=== PATIENT | female | born 1955 | race Caucasian/White ===

== ENCOUNTER 2023-01-30 06:02 | Day surgery (SDC) | payer BC, SELFPAY ==
--- OUTSIDE RECORDS SUMMARY | 2023-01-30 06:07 | XMS_ITS | Continuity of Care Document ---
Author Name Unknown Organization [facility] Address [address] [place] [address] Phone Care Team Providers Care Factory Maintenance Technician Name Role Phone Lorraine SIDDIQUI, Leonardo Unavailable Unavailable Allergies, Adverse Reactions, Alerts Substance Reaction Status Criticality Iodinated Contrast Media Active No Information spironolactone Active No Informatio n gabapentin Active No Information hydrochlorothiazide Active No Infor mation Sulfa (Sulfonamide Antibiotics) Active No Information Medications Medication Instructions Dosage Effective Dates (start - stop) Status Comments lisinopril 40 mg tablet take 1 tablet by oral route every day 40 MG - Active Lipitor 20 mg tablet take 1 tablet by oral route every day 20 MG - Active chlorthalidone 25 mg tablet take 1/2 tablet by oral route every day - Active Pradaxa 150 mg capsule take 1 capsule by oral route 2 times every day 150 MG - Active sildenafil (antihypertensive) 20 mg tablet take 1 Tablet by oral route 3 times every day 20 MG - Active aspirin 81 mg tablet,delayed release take 1 tablet by oral route every day 81 MG - Active diltiazem 120 mg tablet take 1 tablet by oral route 3 times every day 120 MG - Active Co Q-10 100 mg capsule take 1 Capsule by Oral route every day 1 Capsule - Active Vitamin D3 5,000 unit tablet take 1 by Oral route every day 1 - Active VITAMIN K2 (unknown strength) One daily Not Available - Active multivitamin tablet take 1 tablet by oral route every day with food - Active METAMUCIL (unknown strength) 1 teaspoon daily Not Available - Active Procedures Procedure Date Office/Outpatient Visit, [facility] Routine Venipuncture Antinuclear Antibodies Dna Antibody, Single Strand Nov-13-2019 Dna Antibody, [place] Nuclear Antigen Antibodies Advance Directives Directive Yes / No Effective Date File Name No Information Encounters Encounter Description Practice Location Reason(s) For Visit Diagnoses Date Provider Providers Copied on Encounter [facility], [address], [place], [address], [place] tel:[phone] [facility] , No Information 9 Lorraine Patterson. [facility] [address], [place], [address], [place]. tel:[phone] Office/Outpa tient Visit, New [facility], [address], [place], [address], [place] tel:[phone] [facility] , christopher (chief complaint) Pain in unspecified toe(s) 9 Lorraine Patterson. [facility] [address], [place], [address], [place]. tel:[phone] Referring Provider: Leonardo Pablo, [facility] [address], [place], [address]. tel:[phone] [facility], [address], [place], [address], [place] tel:[phone] [facility] , No Information 9 Lorraine Patterson. [facility] [address], [place], [address], [place]. tel:[phone] Referring Provider: Leonarod Pablo, [facility] [address], [place], [address]. tel:[phone] Family History Family Member Type Diagnosis Age At Onset Paternal aunt Problem (finding) rheumatoid arthritis Payers Payer name Insurance type Covered green party ID Authoriza ticortez(s) [facility] [id number] Social History Type Description Quantity Date Captured Comments Sex Female Smoking Status No Information Chief Complaint And Reason For Visit No Information Reason For Referral Reason For Referral No Information History Of Present Illness Encounter Date Complaint History Of Prese nt Illness pernio Functional Status Date Functional Assessmen t No Information Instructions Date Instruction Additional Infor mation No Information Assessments Type Assessment Date No Information Patient Care Teams Name Effective Dates (start - stop) Status Members No Information
[2023-01-30 06:32] VITALS: BMI 30.2
[2023-01-30 06:47] VITALS: BP 135/74; PULSE 68; RESP 16; TEMP 36.8; O2SAT 98
[2023-01-30] MEDS: LACTATED RINGERS 1000 ML 1,000 ML 100 ML IV (07:20)
[2023-01-30] MEDS: SODIUM CHLORIDE 0.9 % (FLUSH) 10 ML SYRINGE IVF (07:20)
--- NOTE | 2023-01-30 07:46 | CRLHL7_ITS ---
For Patients: As a result of the Century Cures Act, medical imaging exams and procedure reports are released immediately into your electronic medical record. You may view this report before your referring provider. If you have questions, please contact your health care provider. HISTORY: Intraoperative. TECHNIQUE: Fluoroscopy was provided for the surgical service intraoperatively. Please see their report for full procedural details. FINDINGS: Spot films demonstrate 1st MTP joint plate and screw fusion hardware. Resection of the heads of the 2nd through 5th metatarsal bones. There are pins associated with the 2nd, 3rd and 4th toes on one of the views. Dictated by Jasen Herr MD @ 02/02/2023 7:17:14 PM (Electronically Signed)
[2023-01-30] MEDS: BUPIVACAINE 0.5% 30 ML INJECTION (07:50)
[2023-01-30 11:41] VITALS: BP 142/81; PULSE 68; RESP 16; TEMP 36.3; O2SAT 98
--- NOTE | 2023-01-30 11:44 | W.ANESCHARGE ---
Anesthesia Charges Start Date/Time Anesthesia Start Date: 01/30/23 Anesthesia Start Time: 07:42 Stop Date/Time Anesthesia Stop Date: 01/30/23 Anesthesia Stop Time: 11:43
[2023-01-30 12:00] VITALS: BP 154/80; PULSE 62; RESP 16; O2SAT 99
[2023-01-30] MEDS: OxyCODONE/APAP 5-325 TABLET PO (12:06)
[2023-01-30 12:15] VITALS: BP 152/77; PULSE 68; RESP 16; O2SAT 99
[2023-01-30 12:45] VITALS: BP 137/77; PULSE 59; RESP 16; O2SAT 99
--- NOTE | 2023-02-01 19:57 | P.PCN_ITS ---
Procedure Note Date Seen: 01/30/23 Date of procedure: 01/30/23 Will [facility] bill your pro fee for this procedure?: No Pre-op diagnosis: Nonhealing ulcer right foot, Bunion right, hammertoes 2-5 right Post-op diagnosis: same Procedure: 1. 1st MPJ fusion right 2. Metatarsal head resection 2, 3, 4, and 5 right 3. Hammertoe repair digit 2 right 4. Hammertoe repair digit 3 right 5. Hammertoe repair digit 4 right 6. Hammertoe repair digit 5 right Procedure Description: Hemostasis: ankle tourniquet 250mmHg. Materials: Arthrex 1st MPJ fusion plate, 3.0mm cortical locking screws x4 and nonlocking screw x1, 3.0mm cannulated headless screw x1, 0.062 k-wire x3. Complication: none apparent. Inidcation for surgery: Dilma has had a longstanding ulceration that has caused numerous infections. She is in need for surgical correction of her foot deformities to heal the ulceration and prevent future issues. I reviewed the procedure, recovery, expectations and possible complications with her. These include but are not limites to: poor wound healing, infection, hardware failure or irritation, possible need for future surgery, nonunion, delayed union, malunion, DVT, PE and possible . All questions answered and written consent obtained. Site marked. Procedure in detail: Patient was brought into the operating room and placed on the operating room table in supine position. Standard timeout protocol followed. MAC anesthesia provided and local anesthetic, 30 mL of 0.5% marcaine plain, injected into the right foot. Plantar ulcer debrided with scalpel. She was prepped and draped in sterile fashion. Tegaderm placed over the plantar ulcer. Right foot exsanguinated and tourniquet inflated to 250mmHg. Dorsal medial incision made over the 1st MPJ right foot. Incision deepened through skin and subcutaneous tissue. Blunt dissection taken down to the 1st MPJ capsule. Linear capsule incision made and 1st metatarsal head and proximal phal anx exposed. Guide pin placed into the 1st metatarsal head and 20mm reamer used to remove the cartilage and subchondral bone removed. Guide pin removed and placed in the proximal phalanx base. The corresponding 20mm reamer used to remove the cartilage and subchondral bone. Area irrigated with saline. The opposing fusion surfaces fenestrated with k-wire. Weight bearing simulated with metal lid and great toe positioned optimally and temporarily fixated with k- wire. Position optimal and confirmed with c-arm. Guidepin placed from distal medial to proximal lateral across fusion. 3.0mm headless screw placed with standard technique. excellent compression across fusion. Dorsal 6 hole plate applied with three 3.0mm locking screws placed distal to fusion and one 3.0mm locking screw and one 3.0mm nonlocking screw placed proximal to the fusion. Medial fusion site remodeled with resurfacing bur. C-arm confirmed excellent position and length of screws. Irrigation with sterile saline. Capsule closed with 3-0 Vicryl suture. Subcutaneous tissue closed with 4-0 Monocryl suture. Skin closed with 4-0 Prolene. Linear incision made between the 2nd and 3rd metatarsal heads and distal shafts. Incision deepened bluntly down to the 2nd toe long extensor tendons. The EDB tendon slip transected and Z lengthening made in the EDL tendon slip. the periosteum of the 2nd metatarsal and the MPJ capsule exposed. 2nd proximal phalanx base completely dorsally dislocated. Linear incision made and McGlammery elevator placed into the joint and the medial, lateral and plantar tissue released from the 2nd metatarsal head. Sagittal saw was used to then transect the metatarsal neck and remove the metatarsal head. Preserving the neurovascular structures between 2nd and 3rd metatarsals a new blunt dissection plane made down to the extensor tendons of the 3rd toe. The EDB tendon slip transected and Z lengthening made in the EDL tendon slip. the periosteum of the 3rd metatarsal and the MPJ capsule exposed. 3rd proximal phalanx base completely dorsally dislocated. Linear incision made and McGlammery elevator placed into the joint and the medial, lateral and plantar tissue released from the 3rd metatarsal head. Sagittal saw was used to then transect the metatarsal neck and remove the metatarsal head. Linear incision made between the 4th and 5th metatarsal heads and distal shafts. Incision deepened bluntly down to the 4th toe long extensor tendons. The EDB tendon slip transected and Z lengthening made in the EDL tendon slip. the periosteum of the 4th metatarsal and the MPJ capsule exposed. Linear incision made and McGlammery elevator placed into the joint and the medial, lateral and plantar tissue released from the 4th metatarsal head. Sagittal saw was used to then transect the metatarsal neck and remove the metatarsal head. Preserving the neurovascular structures between 4th and 5th metatarsals a new blunt dissection plane made down to the extensor tendons of the 5th toe. Z lengthening made in the EDL tendon slip. the periosteum of the 5th metatarsal and the MPJ capsule exposed. Linear incision made and McGlammery elevator placed into the joint and the medial, lateral and plantar tissue released from the 3rd 5th metatarsal head. Sagittal saw was used to then transect the metatarsal neck and remove the metatarsal head. C-arm confimed the appropriate level of cuts. Both areas irrigated with sterile saline. Tourniquet released and all bleeding vessels cauterized. Tourniquet was down for 30 minutes then reinflated. Linear incision made over the PIPJ of the 2nd toe. Incision taken down to the extensor tendon and joint capsule. Neurovascular structures carefully protected medial and lateral. Transverse incision made through the tendons and capsule at the PIPJ. Medial and lateral collateral ligaments released. Oscillating saw used to resect the proximal phalanx head and the middle phalanx base. 0.062 k- wire place in base of middle phalanx and driven out the tip of the toe. Fusion held tightly together and retrograde drilling of k-wire into proximal phalanx. The k-wire was observed exiting the phalanx base and was placed on the metatarsal shaft with toe in perfect position and advanced into the metatarsal purchasing medial cortex. I could not run the k-wire down the shaft as this would hold toe to medial. Irrigation with saline. c-arm confirmed position. 4-0 Vicryl used to repair the extensor tendon. Skin closed with 4-0 Prolene. K-wire bent, cut and capped. Linear incision made over the PIPJ of the 3rd toe. Incision taken down to the extensor tendon and joint capsule. Neurovascular structures carefully protected medial and lateral. Transverse incision made through the tendons and capsule at the PIPJ. Medial and lateral collateral ligaments released. Oscillating saw used to resect the proximal phalanx head and the middle phalanx base. 0.062 k- wire place in base of middle phalanx and driven out the tip of the toe. Fusion held tightly together and retrograde drilling of k-wire into proximal phalanx. The k-wire was observed exiting the phalanx base and was placed on the metatarsal shaft with toe in perfect position and advanced into the metatarsal purchasing medial cortex. I could not run the k-wire down the shaft as this would hold toe to medial. Irrigation with saline. c-arm confirmed position. 4-0 Vicryl used to repair the extensor tendon. Skin closed with 4-0 Prolene. K-wire bent, cut and capped. Linear incision made over the PIPJ of the 4th toe. Incision taken down to the extensor tendon and joint capsule. Neurovascular structures carefully protected medial and lateral. Transverse incision made through the tendons and capsule at the PIPJ. Medial and lateral collateral ligaments released. Oscillating saw used to resect the proximal phalanx head and the middle phalanx base. 0.062 k- wire place in base of middle phalanx and driven out the tip of the toe. Fusion held tightly together and retrograde drilling of k-wire into proximal phalanx. The k-wire was observed exiting the phalanx base and was placed on the metatarsal shaft with toe in perfect position and advanced into the metatarsal purchasing medial cortex. I could not run the k-wire down the shaft as this would hold toe to medial. Irrigation with saline. c-arm confirmed position. 4-0 Vicryl used to repair the extensor tendon. Skin closed with 4-0 Prolene. K-wire bent, cut and capped. Linear incision made over the PIPJ of the 5th toe. Incision taken down to the extensor tendon and joint capsule. Neurovascular structures carefully protected medial and lateral. Transverse incision made through the tendons and capsule at the PIPJ. Medial and lateral collateral ligaments released. Oscillating saw used to resect the proximal phalanx head. Irrigation with saline. c-arm confirmed position. 4-0 Vicryl used to repair the extensor tendon. Skin closed with 4-0 Prolene. K-wire bent, cut and capped. Incisions over the metatarsals closed with 4-0 Monocryl and 4-0 Prolene. Xeroform placed over incisions and plantar ulcer. Tourniquet released and normal CFT returned to all digits. Sterile dressing applied. CAM boot placed. She was transported from OR to PACU with VSS and vascular status intact. She will be discharged per anesthesia and same day surgery protocol. WB to the heel in CAM boot for transfers otherwise NWB. Crutches or walker. Both written and verbal post operative instructions given. Oxycodone for pain sent to pharmacy. She can also take tylenol. She will start her eliquis tomorrow. Follow up next week. Keep dressing clean and dry. Resume levaquin tomorrow. Anesthesia: MAC and local Surgeon: Francesco Balbuena DPM FACFAS Estimated blood loss (mL): 20 Pathology: none sent Condition: stable Disposition: same day
== END 2023-01-30 13:15 | disposition home or self-care (01) ==
PROVIDERS: Visit Provider Podiatrist
PROC: (CPT 28740; principal; 2023-01-30 07:15)
PROC: (CPT 28285; 2023-01-30 07:15)
DX: L97.512 Non-pressure chronic ulcer of other part of right foot with fat layer exposed (principal); M20.41 Other hammer toe(s) (acquired), right foot; M21.611 Bunion of right foot; M77.41 Metatarsalgia, right foot
CPT/HCPCS: 28750; 28285 ×4; 28308; 01480; 73620; 76000; A4580; A9270; C1713; J0665; J1100; J2704; J3010; J7120; S0077